=== PATIENT | male | born 1980 | race Caucasian/White ===

== ENCOUNTER 2017-05-24 16:23 | Emergency (ER) | payer MEDICAID | END 2017-05-24 17:48 | disposition home or self-care (01) | LOC: FTE 16:23 → E/R 17:48 | DX: H66.93 Otitis media, unspecified, bilateral (principal) | CPT/HCPCS: 99283; Z7502 ==

== ENCOUNTER 2017-08-13 12:33 | Emergency (ER) | payer MEDICAID | END 2017-08-13 13:17 | disposition home or self-care (01) | LOC: E/R 12:33 | DX: R05 Cough (principal); R50.9 Fever, unspecified | CPT/HCPCS: 99284; Z7502 ==

== ENCOUNTER 2017-12-22 17:34 | Emergency (ER) | payer MEDICAID ==
[2017-12-22] MEDS: LIDOCAINE/MYLANTA 40 ML BTL PO (19:14)
== END 2017-12-22 20:19 | disposition home or self-care (01) ==
LOC: FTE 17:34
DX: R09.89 Other specified symptoms and signs involving the circulatory and respiratory systems (principal)
CPT/HCPCS: 70360; 99283-25